=== PATIENT | female | born 1980 | race Caucasian/White ===

== ENCOUNTER 2018-08-13 05:47 | Observation (INO) | payer OTHER ==
--- NOTE | 2018-08-05 18:47 | GHP ---
DATE OF ADMISSION: 08/13/2018 DATE OF SURGERY: Scheduled for 08/13/2018 at 7:15 a.m. SURGERY TO BE PERFORMED: Total laparoscopic hysterectomy, bilateral salpingectomy. PREOPERATIVE DIAGNOSIS: Symptomatic uterine prolapse. HISTORY OF PRESENT ILLNESS: The patient is a 38-year-old, 3, para 1-1-1-3, who first present ed in May 2018 with complaints of symptomatic uterine prolapse. She has significant pelvic pain a nd pressure symptoms. Feels like she has fullness in her vagina. There is a tampon in her vagina at all times. She has difficulty running and cleaning herself after a bowel movement. She has issues with exercise, and daily activities, and also significant dyspareunia. She has previously been diagn osed with a rectocele by a previous feeder associate. She has performed aggressive pelvic physical thera py and does not feel that it helped at all. She does not have urinary stress incontinence. Occasion ally, she is concerned about stool incontinence, but it is not a significant issue for her. Her lorene ods also are very regular, every 28 days, and heavy in flow, passing large clots, changing a super ta mpon every 2 hours. Cramps are moderate. Her contraception is her had a vasectomy. They have completed their childbearing. She had a complicated obstetrical history and does not desire further children. She desires permanent treatme nt for her uterine prolapse with a hysterectomy. The patient underwent an ultrasound that demonstrat ed normal uterine anatomy. No masses within the uterus or the endometrial canal. The endometrium wa s normal, thin at 1.09 cm, and both ovaries were normal as well, and she has normal laboratory evalua tion. The patient was offered more pelvic physical therapy, pessary placement for minimally invasive approaches. She declines this. She is young and wishes to have definitive management with a hyster ectomy. PAST OBSTETRICAL HISTORY: In March of 2013, she had a spontaneous . Later in 2012, she had a n emergency at 25 weeks for twins secondary to severe preeclampsia. It was a low transvers e section, and in 2016, she had a successful vaginal after section with force ps-assisted delivery and a third-degree tear. She has 3 kids and does not wish to have any more. GYNECOLOGICAL HISTORY: She has normal menarche at age 14. Periods every 4 weeks for 4-5 days with m oderate flow, light cramping, difficulties with tampons, difficulties because of pelvic pressure. Adama andrew has a vasectomy; that is her control. She has normal history of Paps. No history of any STDs. Her most recent Pap was in May 2018, and it was normal with negative HPV. PAST MEDICAL HISTORY: She has no significant past medical, no chronic medical problems. PAST SURGICAL HISTORY: A D and C in 2012, a in 2012. As part of her IVF workup for her tw ins, she had an ovarian cyst removal and a surgery for endometriosis in 2011. ALLERGIES: She has no known drug allergies. MEDICATIONS: No current medications. SOCIAL HISTORY: She is . She is a qkwg-qy-[id number] mom. She lives with her and 3 girls. She denies tobacco. Alcohol 4-5 times a week. Marijuana very rarely. No other drugs. Moderate ca ffeine use. Regular exercise. FAMILY HISTORY: Her father has hypertension and prostate cancer. Maternal aunt was diagnosed with b reast cancer at age 40. Maternal grandfather had diabetes and heart disease, and that is all. OBJECTIVE: VITAL SIGNS: Blood pressure is 112/60, weight is 150 pounds, height is 67.8 inches, with a BMI of 23. GENERAL: She is a well-developed, well-nourished white female in no acute distress. LUNGS: Clear to auscultation bilaterally. HEART: Regular rate and rhythm. No murmur. ABDOMEN: S oft, nontender, nondistended. Normal bowel sounds. PELVIC EXAM: Normal external genitalia. Enlarg ed genital hiatus. Normal parous cervix. She has grade 2-3 uterine prolapse. Does not feel like an isolated cystocele or rectocele. Uterus is mobile, small. No cervical motion tenderness. No adnex al tenderness. ASSESSMENT/PLAN: A 38-year-old 3, para 1-1-1-3, with symptomatic uterine prolapse, has compl eted her childbearing. She desires definitive management with hysterectomy. We discussed the total laparoscopic hysterectomy approach because of her history of a classical at 25 weeks, possi ble adhesions, and endometriosis. So the patient was consented for the procedure. She understood th e risks and benefits, the risks including bleeding, infection, damage to internal organs, uterus, tub es, ovaries, bowel, bladder, nerves, blood vessels, ureters, need for open procedure, need for additi onal procedures. She understood these risks and benefits and agreed to proceed. /[id number]/CHRISTOL
[2018-08-13] MEDS ORDERED: ceFAZolin 2 GM/DEXTROSE 100 ML IV ONE (06:06)
[2018-08-13] MEDS ORDERED: LIDOCAINE 1% 2 ML INJ ID PRN (06:07)
[2018-08-13] MEDS ORDERED: LR 1,000 ML IV ONE (06:07)
[2018-08-13] MEDS ORDERED: BUPIVACAINE 0.5% 30 ML SDV ONE (06:50)
--- NOTE | 2018-08-13 06:52 | POSTANESTH ---
Post Anesthetic Evaluation Cardiovascular Status: Normal, Stable Respiratory Status: Normal, Stable Level of Consciousness/Mental Status: Can Participate in Eval, Mildly Sleepy, Arousable Pain Control: Adequate, Prn Tx Ordered Nausea/Vomiting Control: Adequate, Prn Tx Ordered Complications Possibly Related to Anesthesia: None Noted Notes: Tanika B AQUILES dumont.
--- NOTE | 2018-08-13 07:01 | PDANEPAE ---
ANE History of Present Illness 38 yo female with uterine prolapse for hysterectomy. ANE Past Medical History - Cardiovascular History Hx Hypertension: No Hx Arrhythmias: No Hx Chest Pain: No Hx Coronary Artery / Peripheral Vascular Disease: No Hx CHF / Valvular Disease: No Hx Palpitations: No Cardiovascular History Comment: GESTATIONAL HTN - Pulmonary History Hx COPD: No Hx Asthma/Reactive Airway Disease: No Hx Recent Upper Respiratory Infection: No Hx Oxygen in Use at Home: No Hx Sleep Apnea: No Sleep Apnea Screening Result - Last Documented: Negative - Neurologic History Hx Cerebrovascular Accident: No Hx Seizures: No Hx Dementia: No Neurologic History Comment: OCCAS HEADACHES - Endocrine History Hx Diabetes: No Hypothyroid: No Hyperthyroid: No Obesity: no - Renal History Hx Renal Disorders: No - Liver History Hx Hepatic Disorders: No - Neurological & Psychiatric Hx Hx Neurological and Psychiatric Disorders: No Neurological / Psychiatric History Comment: depression - Cancer History Hx Cancer: No - Congenital Disorder History Hx Congenital Disorders: No - GI History Hx Gastrointestinal Disorders: No - Other Health History Other Health History: NEG - Chronic Pain History Chronic Pain: No - Surgical History Prior Surgeries: OVARIAN CYST. C SECTION ANE Review of Systems Review of Systems: - Exercise capacity METS (RN): 5 METS - Systems Constitutional: Reports: no symptoms Cardiac: Reports: no symptoms Respiratory: Reports: no symptoms ANE Patient History - Allergies Allergies/Adverse Reactions: No Known Allergies Allergy (Unverified 11/02/14 15:28) - Home Medications Home Medications: Sertraline HCl 11/02/14 [Last Taken 08/12/18 21:00] Ibuprofen 07/21/18 [Last Taken 08/05/18] Multivitamin (*) 07/21/18 [Last Taken 08/05/18] - NPO status NPO Since - Liquids (Date): 08/12/18 NPO Since - Liquids (Time): 22:00 NPO Since - Solids (Date): 08/12/18 NPO Since - Solids (Time): 20:00 - Anes Hx Anes Hx: no prior problems - Smoking Hx Smoking Status: Never smoked - Alcohol Use Alcohol Use: Occasionally (4/week) - Family Anes Hx Family Anes Hx: neg - N/A Family Hx Anesthesia Complications: NEG ANE Labs/Vital Signs - Labs - CBC HGB: 13 HCT: 40 Platelet Count: 227 - Vital Signs Blood Pressure: 92/77 Heart Rate: 63 Respiratory Rate: 12 O2 Sat (%): 96 Height: 172.72 cm Weight: 65.771 kg ANE Physical Exam - Airway Neck exam: FROM Mallampati Score: Class 2 Mouth exam: normal dental/mouth exam - Pulmonary Pulmonary: clear to auscultation - Cardiovascular Cardiovascular: regular rate and rhythym - ASA Status ASA Status: II ANE Anesthesia Plan Anesthesia Plan: general endotracheal anesthesia
[2018-08-13] MEDS ORDERED: MIDAZOLAM 2 MG/2 ML VIAL IVP ONE (07:03)
--- NOTE | 2018-08-13 07:14 | PDHPUP ---
History & Physical Update H&P update statement: This history and physical update is based on an assessment of the patient which was completed after admission or registration (within 24 hours), but prior to the surgery/procedure. H&P update: H&P reviewed & patient examined, no change in patient's condition since H&P completed
[2018-08-13] MEDS ORDERED: morphINE PF 5 MG/10 ML INJ ONE (07:15)
[2018-08-13] MEDS ORDERED: ROCURONIUM 50 MG/5 ML VIAL ONE (07:15)
[2018-08-13] MEDS ORDERED: DEXAMETHASONE 4 MG/ML VIAL ONE (07:15)
[2018-08-13] MEDS ORDERED: PROPOFOL/EMULSION 500 MG/50 ML BOTTLE IV ONE (07:15)
[2018-08-13] MEDS ORDERED: BUPIVACAINE/DEXTROSE 7.5MG/ML 2 ML SPINAL AMP SP ONE (07:15)
[2018-08-13] MEDS ORDERED: LIDOCAINE 2% 2 ML INJ ONE (07:22)
[2018-08-13] MEDS ORDERED: ONDANSETRON 4 MG/2 ML VIAL ONE (09:36)
[2018-08-13] MEDS ORDERED: KETOROLAC 30 MG/1 ML SDV ONE (09:36)
[2018-08-13] MEDS ORDERED: ALBUTEROL 3 ML DEYVIAL IH PRN (10:11)
[2018-08-13] MEDS ORDERED: LR 500 ML IV PRN (10:11)
[2018-08-13] MEDS ORDERED: NALOXONE HCL 0.4 MG/ML INJ IVP PRN (10:11)
[2018-08-13] MEDS ORDERED: ACETAMINOPHEN 500 MG TAB PO PRN (10:11)
[2018-08-13] MEDS ORDERED: fentaNYL 100 MCG/2 ML INJ IVP PRN (10:11)
[2018-08-13] MEDS ORDERED: PROMETHAZINE HCL 25 MG/ML INJ IVP PRN (10:11)
[2018-08-13] MEDS ORDERED: ONDANSETRON DISINTEGRATING 4 MG TAB PO PRN (10:35)
[2018-08-13] MEDS ORDERED: ONDANSETRON 4 MG/2 ML VIAL IVP PRN (10:35)
--- NOTE | 2018-08-13 10:39 | POSTOPPROG ---
Post Op Note Date of Operation: 08/13/18 Surgeon: Maria Elena Sheehan Production Checker: Dr. Jose Eduardo Potts Anesthesiologist: Dr. Pam Cagle Anesthesia: GET(General Endotracheal) Pre-op Diagnosis: symptomatic uterine prolapse Post-op Diagnosis: same Procedure: LAVH B salpingectomy Findings: normal uterus, tubes and ovaries Inf/Abcess present in the surg proc area at time of surgery?: No Depth: Organ Space EBL: 50-100 Total fluids administered: 1350 Complications: none Specimen(s): uterus with cervix, bilateral fallopian tubes
[2018-08-13] MEDS ORDERED: POLYETHYLENE GLYCOL 3350 17 GM PKT PO PRN (10:51)
[2018-08-13] MEDS ORDERED: BISACODYL 10 MG SUPP PR PRN (10:51)
[2018-08-13] MEDS ORDERED: LACTULOSE 20 GM/30 ML UDCUP PO PRN (10:51)
[2018-08-13] MEDS ORDERED: MAGNESIUM HYDROXIDE 30 ML UDCUP PO PRN (10:51)
[2018-08-13] MEDS ORDERED: fentaNYL 100 MCG/2 ML INJ ONE (11:04)
--- NOTE | 2018-08-13 11:46 | GOP ---
DATE OF OPERATION: 08/13/2018 SURGEON: Maria Elena Sheehan MD BLEACH MACHINE OPERATOR: Yonathan Potts MD. ANESTHESIA: General anesthesia. ANESTHESIOLOGIST: Pam Mckeon MD. PREOPERATIVE DIAGNOSIS: Symptomatic uterine fibroids. POSTOPERATIVE DIAGNOSIS: Symptomatic uterine fibroids. PROCEDURE PERFORMED: Laparoscopic-assisted vaginal hysterectomy and bilateral salpingectomy. FINDINGS: SPECIMENS: Uterus with cervix and bilateral fallopian tubes. ESTIMATED BLOOD LOSS: 75 cc. DESCRIPTION OF PROCEDURE: Patient was taken to the operating room where she was placed under general anesthesia without difficulty. She was prepped and draped in the dorsal lithotomy position and a Jasso catheter was placed in the vagina. An exam under anesthesia revealed a small mobile midline uterus with cervical prolapse to the introitus. No significant cystocele or rectocele involved, and no masses. The open-sided speculum was placed in the vagina, and a single-tooth tenaculum was used to grasp the anterior lip of the cervix. The uterus sounded to 8 cm. The cervix was dilated to 6 cm with Shine dilators. The MARV uterine manipulator using the large cervical cup and the 8 mm uterine sound was placed in the vagina, and advanced to the uterus without difficulty. Attention was then turned to the abdominal portion of procedure. After injection of Marcaine, a 5 mm skin incision was made in the infraumbilical skin fold and under direct visualization, the 5 mm atraumatic trocar was placed until pneumoperitoneum was entered. Pneumoperitoneum was created with carbon dioxide gas. The patient was placed in steep Trendelenburg. After injection of Marcaine, a 5 mm skin incision was placed in the right lower quadrant and a 1 cm skin incision was placed in the left lower quadrant. Atraumatic trocars were placed in both these ports without difficulty. Inspection of the pelvis revealed a normal uterus, normal tubes and ovaries. No abnormalities in the pelvis. The left fallopian tube was grasped at the fimbriated end and the LigaSure was used to cauterize and dissect along the mesosalpinx to the cornual region of the uterus, it was removed and removed directly through the 10 mm port. The ovary was elevated and ureters were easily seen in the peritoneal reflection bilaterally with normal peristalsis. The round ligament was dissected with the LigaSure, cauterized and cut and the utero-ovarian ligament, cauterized and cut. Dissection was performed along the cardinal ligaments until the uterine vessels were identified. I dissected the broad ligament into anterior and posterior leaves and the vesicouterine peritoneum was reflected over the cervical cup and the bladder was reflected inferiorly until good visualization was performed along the cervical cap anteriorly. Uterine vessels were cauterized and cut, and hemostasis was assured. Attention was then turned to the right side of the uterus where the right fallopian tube was grasped at the fimbriated end and LigaSure was used to cauterize and cut and dissect along the mesosalpinx. The tube was removed through the 10 mm port. Again, the ureter was identified in normal anatomic position and peristalsing normally. We dissected along the round ligament, uteroovarian ligaments, broad ligament, anterior and posterior sheath and the cardinal ligaments until the uterine vessels were identified on the right. They were also cauterized and cut. With uterine manipulation the cervical cup was visualized from anterior to posterior. The MARV balloon was insufflated and dissection was performed with a monopolar hook on the ligature posteriorly 1st until we identified the blue cup along the cervix to create the colpotomy. Colpotomy was created posteriorly and to the patient's left. However, during that we were not able to keep pneumoperitoneum and had difficulties with visualization despite multiple attempts to maintain pneumoperitoneum. We were now able to visualize to complete the colpotomy laparoscopically. We then decided to convert to a total vaginal hysterectomy to complete the hysterectomy. Vaginal hysterectomy set acquired. The duck-billed long weighted speculum was placed through into the posterior cul-de-sac through the prior created colpotomy scar and we visualized anteriorly with the retractors. The anterior vaginal fold was opened with a knife. Dissection was performed with Mccarthy scissors and blunt dissection was made with a Ray-Kelsey to identify the cervical vaginal fascia. Progressive bites were taken with Rupa clamps along the right and the left lateral portions of the vagina. They were cut with Mccarthy scissors and suture ligated with [id number]-lo-ilifj sutures of 0 Vicryl right and left. We then dissected further anteriorly until we were able to identify the anterior fold of the cul-de-sac. Retractor was placed there and Rupa clamps further grasped and suture ligated to remove the uterus. The pedicles were made hemostatic with [id number]-iw-[id number] sutures of 0 Vicryl and good hemostasis was assured as the uterus was removed. The peritoneal fold was grasped with an Allis and a Churchill's culdoplasty was performed with 2-0 Vicryl in a circumferential fashion until there was a tight closure of the peritoneum and the vaginal cuff was closed with interrupted sutures of 0 Vicryl. The vagina was copiously irrigated and was hemostatic and the vaginal instruments were removed. Attention was then performed back to the laparoscopic portion and pneumoperitoneum was created. The vaginal cuff was hemostatic as well as all the pedicles. The ovaries were normal. The ureters were visualized. The uterus was visualized, there was a normal appendix visualized and a normal gallbladder visualized. We then performed a cystoscopy to assure normal peristalsis of both ureters and this was observed. The 10 mm trocar was then removed and a ytynuu-ft-ajjce suture of 0 Vicryl was performed under direct laparoscopic visualization to close that port. All pneumoperitoneum was allowed to escape, and the skin closures were closed with 4-0 Monocryl and the Jasso catheter was replaced. The patient tolerated the procedure well. Sponge , lap, needle, and instrument counts were correct x2. Patient went to the recovery room in good condition. INDICATION FOR PROCEDURE: The patient is a 38-year-old, 3, para 1-1-1-3 , who first presented in May 2018 with complaints of symptomatic uterine prolapse, significant pelvic pain and pressure symptoms. She feels like she has a fullness in her vagina all of the time, difficulty running and with basic hygiene. She has issues with exercise and daily activity and she has significant dyspareunia. She has been in aggressive pelvic physical therapy since the of her last child, which she feels has not helped her at all. She does not have urinary stress incontinence. Occasionally, she is concerned about stool incontinence. Periods are also very regular, every 28 days with heavy in flow, passing large clots, using a super tampon every 2 hours with moderate cramping. The patient has completed her childbearing. Her has had a vasectomy. They are sure they do not want other children and she wishes to have definitive management of her uterine prolapse with a hysterectomy. The patient was consented for a total laparoscopic hysterectomy with bilateral salpingectomy. She understood the risks and benefits, the risks including bleeding, infection, damage to organs, uterus, tubes, ovaries, bowel, bladder, nerves, blood vessels, ureters, risk of needing an open procedure, risk of needing additional procedures and complications of anesthesia including . She understood these risks and benefits and agreed to proceed. URINE OUTPUT: 450 cc. IV FLUIDS: 1350. /[id number]/MODL MTDD
[2018-08-13] MEDS: KETOROLAC 30 MG/1 ML SDV IVP SCH ×3 (12:34→23:08)
--- NOTE | 2018-08-13 12:57 | ASMTCMCOM ---
CM Note CM Note Notes: Patient chart reviewed for discharge planning purposes. 38 year old female s/p vaginal hysterectomy. No current needs identified. CM available should needs arise. Plan: Likely to dc independently when medically cleared for dc. Date Signed: 08/13/2018 12:57 PM Electronically Signed By:Esperanza Sellers RN
--- NOTE | 2018-08-13 18:23 | SOAPPROG ---
SOAP Progress Note Assessment/Plan: Assessment: 38 y/o POD 0 s/p LAVH B salpingectomy doing well. Plan: Advance diet at tolerated and start PO pain meds. D/c kevin in am. Will start some IVF tonight for Hypotension, likely her baseline and Duramorph. Anticipate d/c tomorrow. 08/13/18 18:21 Subjective: Pt is doing well, resting comfortably. She has min pain and discomfort. No nausea and some appetite. We reviewed surgical findings and procedure photos. Objective: Vital Signs Temp Pulse Resp BP Pulse Ox 36.8 C 69 14 102/54 L 97 08/13/18 15:00 08/13/18 15:00 08/13/18 15:00 08/13/18 15:00 08/13/18 15:00 08/12/18 08/13/18 08/14/18 05:59 05:59 05:59 Intake Total 1400 Output Total 1350 Balance 50 - Pending Discharge Pending Discharge Within 24 Hours: Yes Pending Discharge Date: 08/14/18 Pending Discharge Time: 11:00 Physical Exam - Physical Exam General Appearance: WD/WN, alert, no apparent distress Neck: non-tender, full range of motion, supple Respiratory: chest non-tender, lungs clear, normal breath sounds Cardiac/Chest: regular rate, rhythm Abdomen: normal bowel sounds, other (incisions c/d/i) Extremities: swelling (no), Amilcar's sign (neg) ICD10 Worksheet Patient Problems: Problems Problem Status Onset S/P laparoscopic hysterectomy Acute - ICD10 Problem Qualifiers (1) S/P laparoscopic hysterectomy
[2018-08-13] MEDS: LR 1,000 ML IV SCH (18:41)
[2018-08-13] MEDS: SENNOSIDES/DOCUSATE SODIUM TAB PO SCH (21:50)
[2018-08-14 05:23] LABS: PLATELET COUNT 151 10^3/uL (150-400)
[2018-08-14] MEDS: KETOROLAC 30 MG/1 ML SDV IVP SCH (05:49)
[2018-08-14] MEDS: LR 1,000 ML IV SCH (08:19)
[2018-08-14] MEDS: SENNOSIDES/DOCUSATE SODIUM TAB PO SCH (09:05)
[2018-08-14] MEDS: HYDROCODONE/APAP 5/325 TAB PO PRN ×2 (09:18→11:06)
[2018-08-14] MEDS ORDERED: IBUPROFEN 600 MG TAB PO SCH (10:37)
--- NOTE | 2018-08-14 10:50 | PDPAINCON ---
Pain Management Consultation - Subjective Pain at rest (/10): 4 Pain with activity (/10): 4 Pain is: low, well controlled Side effects include: No drowsy, No itchiness, No nausea, No nausea/vomiting, No rash Activity: able to ambulate - Objective Technique: spinal opioid Continuous infusion: morphine Catheter site: clean, dry, intact, no erythema/edema/exudate Vital signs: stable - Assessment/Plan Assessment/Plan: pain well-controlled, continue current mgmt Additional comments: mild RUIZ, not positional, discussed PDPHA, does not appear to be happening here.
--- NOTE | 2018-08-14 12:16 | SOAPPROG ---
SOAP Progress Note Assessment/Plan: Assessment: 38 y/o POD 1 s/p LAVH B salpingectomy doing well. Plan: D/c home today with Rx Ibuprofen and [place]. Follow-up @ [facility] 2 and 6 weeks. 08/13/18 18:21 08/14/18 12:15 Subjective: Pt is doing well today. Her kevin is out and she is voiding without difficulty. She has a good appetite and her pain is well controlled on po meds. She is ready to d/c home. Objective: Vital Signs Temp Pulse Resp BP Pulse Ox 37.1 C 65 16 112/69 95 08/14/18 08:23 08/14/18 08:23 08/14/18 08:23 08/14/18 08:23 08/14/18 08:23 Laboratory Results 08/14/18 04:34 08/13/18 08/14/18 08/15/18 05:59 05:59 05:59 Intake Total 3001 300 Output Total 2700 Balance 301 300 - Pending Discharge Pending Discharge Within 24 Hours: Yes Pending Discharge Date: 08/15/18 Pending Discharge Time: 11:00 Physical Exam - Physical Exam General Appearance: WD/WN, alert, no apparent distress Neck: non-tender, full range of motion, supple Respiratory: chest non-tender, lungs clear, normal breath sounds Cardiac/Chest: regular rate, rhythm Abdomen: normal bowel sounds, other (incisions c/d/i) Extremities: swelling (no), Amilcar's sign (neg) ICD10 Worksheet Patient Problems: Problems Problem Status Onset S/P laparoscopic hysterectomy Acute - ICD10 Problem Qualifiers (1) S/P laparoscopic hysterectomy
[2018-08-14 12:27] VITALS: BP 107/73
--- NOTE | 2018-08-14 12:57 | GDS ---
The patient was admitted immediately status post laparoscopic-assisted vaginal hysterectomy and bilat eral salpingectomy. She was admitted for a 23-hour observation. HISTORY OF PRESENT ILLNESS: The patient is a 38-year-old, 3, para 1-1-1-3, who presented wit h symptomatic uterine prolapse, pelvic pain, pressure symptoms, and menorrhagia. The patient has com pleted her childbearing, her has had a vasectomy and they are sure that they do not want to h ave other children. She has tried aggressive pelvic physical therapy without relief. She denies inc ontinence issues and wishes to have definitive management with a hysterectomy. HOSPITAL COURSE: The patient was consented and underwent the procedure on the morning of the . T he procedure was uncomplicated. However, did have to convert to a vaginal approach for removal of th e uterus due to pelvic laxity and prolapse. The surgery was uncomplicated. EBL was 75. Patient amarilis t to the recovery room in good condition. She was admitted to the floor overnight. She had received Duramorph prior to her surgery, which kept her pain well controlled overnight and had a Jasso in for rest. On the morning of the , her Jasso was discontinued and she was able to void without diffic ulty. She had no bleeding, good appetite, her pain was well controlled with oral medications and she is ready to discharge home. Preoperative hematocrit was normal at 39. Postoperative 33.5. Patient will be discharged home with ibuprofen. Instructions to take [place] and iron and follow up with Dr. Sheehan at [facility] in 2 and 6 weeks. /[id number]/MODL
--- NOTE | 2018-08-14 17:39 | ASMTDCNOTE ---
Case Management Discharge Discharge Order Complete? Answers: Yes Patient to Obtain Answers: via Family Medications Transportation Arranged Answers: Family/Friends Discharge Comments Notes: Pt admitted for vaginal hysterectomy. Discharged home independently. No CM needs noted at this time. Date Signed: 08/14/2018 05:38 PM Electronically Signed By:Faith Aamya
--- NOTE | 2018-08-14 17:39 | ASMTLACE ---
TARANE Length of stay for Answers: 1 day current admission Acuity / Level of Answers: No Care: Did the patient have an inpatient admission? Comorbidities - select Answers: Other Notes: menorrhagia all that apply Score: 2 Date Signed: 08/14/2018 05:38 PM Electronically Signed By:Faith Amaya
== END 2018-08-14 12:35 | disposition home or self-care (01) ==
LOC: F3E 05:47 → F1N 10:49
PROVIDERS: ADMIT Obstetrics & Gynecology; ATTEND Obstetrics & Gynecology
DX: N81.4 Uterovaginal prolapse, unspecified (principal); D25.9 Leiomyoma of uterus, unspecified
CPT/HCPCS: 58571; G0378; J0690; J1100; J1885; J2250; J2270; J2274; J2405; J2704; J3010